=== PATIENT | female | born 1950 | race Hispanic/Latino ===

== ENCOUNTER → 2019-09-25 | Day surgery (SDC) | payer MEDICARE, OTHER ==
[2019-09-22 09:15] LABS: BASOPHILS % 0.3 % (0.0-1.0); EOSINOPHILS # (AUTO) 0.2 (0.0-0.4); EOSINOPHILS % 2.3 % (0.0-6.0); HEMATOCRIT 29.8 % (34.2-44.1); HEMOGLOBIN 9.3 g/dL (12.0-16.0); LYMPHOCYTES # (AUTO) 1.2 (1.0-3.2); MEAN CORPUSCULAR HGB CONC 31.2 g/dL (31-35); MEAN CORPUSCULAR VOLUME 80.1 fL (81-99); MONOCYTES # (AUTO) 0.5 (0.2-0.8); MONOCYTES % 7.6 % (4.4-11.3); NEUTROPHILS % 72.2 % (38.7-80.0); PLATELET COUNT 258 x10e3/uL (140-360); RED BLOOD COUNT 3.72 x10e6/uL (3.6-5.1); RED CELL DISTRIBUTION WIDTH 16.3 % (11.7-14.4)
[~2019-09-25] MED LIST: AMOXICILLIN250 MG PO; FENTANYL CITRATE/PF 100MCG/2 ML INJ ONE; FISH OIL 1,2001 EACH PO; GLIPIZIDE-METF1 EAC2 PO; HYDROCHLOROTHIA25 MG PO; IBUPROFEN200 MG PO; IRON PO; JANUVIA100 MG PO; LANTUS 3ML100 UNITS/ SQ; LIDOCAINE HCL 2% LOCAL INJ 5 ML SDV VIAL INJ ONE; LOSARTAN POTAS100 MG PO; PHENYLEPHRINE HCL 1% 10 MG/ML VIAL ONE; PROPOFOL IV EMULSION 10 MG/ML 20 ML VIAL ONE; SIMVASTATIN40 MG PO
--- OUTSIDE RECORDS SUMMARY | 2019-09-25 10:16 | XMS REPORT | Clinical Summary ---
Author Author [facility][1] Distr ict Organization [facility][1] Distr ict Address Unknown Phone Unavailable Care Team Providers [facility] [place] Recorder Name Role Phone PCP Unavailable Allergies Comments Active Allergy Reactions Severity Noted Date Linden Inhibitors Cough Medium 01/16/2014 Medications End Date Status Medication Sig Dispensed Refills Start Date Active gabapentin (NEURONTIN) Take 1 270 capsule 3 300 mg capsule by 4 capsuleIndications: mouth 3 times Neuropathy, Neck pain on daily. right side Active traMADol (ULTRAM) 50 mg Take 1 tablet 90 tablet 1 tabletIndications: Hip by mouth 4 pain every 8 hours as needed for Pain. Active naproxen (NAPROSYN) 500 Take 1 tablet 180 tablet 2 mg tabletIndications: by mouth 2 4 Back pain times daily as needed for Pain Take with food. Active cetirizine (ZYRTEC) 10 mg Take 1 tablet 90 tablet 2 tabletIndications: by mouth 4 Allergic rhinitis, cause daily. unspecified Active omeprazole (PRILOSEC) 20 Take 1 90 capsule 3 0 201 mg delayed release capsule by 5 capsuleIndications: mouth daily. Unspecified gastritis and gastroduodenitis without mention of hemorrhage Active naproxen (NAPROSYN) 500 Take 1 tablet 60 tablet 1 mg tabletIndications: by mouth 2 5 Tibialis posterior times daily tendinitis (with meals). Active hydrochlorothiazide Take 1/2 45 tablet 3 (HYDRODIURIL) 25 mg tablet by 5 tabletIndications: mouth daily Essential hypertension for blood pressure Active acarbose (PRECOSE) 100 mg Take 1 tablet 360 tablet 3 tabletIndications: by mouth 3 5 Diabetes mellitus with times daily HbA1C goal between 7 and with meals. 8 Active famotidine (PEPCID) 40 mg Take 1 tablet 90 tablet 3 tabletIndications: by mouth 2 5 Gastritis, bile acid times daily reflux as needed for Heartburn. Active cyclobenzaprine Take 1 tablet 30 tablet 3 04/27/20 1 (FLEXERIL) 10 mg by mouth 3 5 tabletIndications: times daily Rotator cuff sprain as needed for Muscle Spasms. Active amitriptyline (ELAVIL) 10 Take 1 tablet 90 tablet 3 mg tabletIndications: by mouth at 6 Chronic intractable bedtime headache, unspecified nightly. headache type Active losartan (COZAAR) 100 mg Take 1 tablet 90 tablet 3 tabletIndications: by mouth 6 Essential hypertension daily. Active glyBURIDE-metFORMIN Take 2 360 tablet 3 (GLUCOVANCE) 5-500 mg per tablets by 6 tabletIndications: Type 2 mouth 2 times diabetes mellitus with daily (with hemoglobin A1c goal of meals). 7.0%-8.0% Active Problems Problem Noted Date Diabetes mellitus with HbA1C goal between 7 and 8 Tibialis posterior tendonitis 06/10/2014 Type 2 diabetes mellitus with target hemoglobin A1c o f less than 8.0 05/26/2014 percent Rotator cuff sprain 05/26/2014 Hyperopia with presbyopia 11/24/2013 Cortical cataract of both eyes 11/24/2013 Low back pain 09/09/2013 Vitamin D deficiency 06/05/2013 Poor posture 01/15/2009 Pain in thoracic spine 01/15/2009 Overview: And chronic neck pain PT sessions not helpful Obesity 09/06/2007 GERD (gastroesophageal reflux disease) 11/01/2006 Overview: UGI 07/18 Hypertension 01/24/2006 Immunizations Name Administration Dates Next Due Herpes Zoster Vaccine In 02/18/2015 Clinic Influenza A (H1N1) Vac 04/07/2009 Injection Influenza Vaccine 02/18/2015, 03/11/2014, 06/2012, 03/15/2012, 02/28/2011, 03/03/2010, 03/10/2009, , 02/22/2007, 05/04/2006, 05/02/2002, , 03/02/2000, 02/26/1997, 02/20/1995, 08/1993, 03/03/1992 PPV 23 Pneumococcal 02/14/2013, 02/21/2005 Polysaccaride Pneumococcal 13-valent 07/13/2015 (Deferred: Vacci ne Unavailable) conj 0.5 mL injection Td Tetanus, diphtheria 05/20/2007 Toxoids Vaccine Family History Medical History Relation Name Comments Hypertension Brother Diabetes Father and brother Cancer Mother uterine Relation Name Status Comments Brother Alive three Brother Daughter Alive four Father dm (Age 66) Maternal Grandfather old age (Age 88) Maternal Grandmother old age (Age 89) Mother uterus cancer (Age 55) Paternal Grandfather unknown (Age unknown) Son Alive wo Social History Date Tobacco Use Types Packs/Day Years Used Never Smoker Smokeless Tobacco: Never Used Tobacco Cessation: Counseling Given: No Comments: none Drinks/Week oz/Week Comments Alcohol Use No Sex Assigned at Date Recorded Not on file Industry Job Start Date Occupation Not on file Not on file Not on file Travel End Travel History Travel Start No recent travel history available. Last Filed Vital Signs Not on file Plan of Treatment Health Maintenance Due Date Last Done Comments Colorectal Cancer Scrn 05/31/2011 05/31/2010, , 11/27/2007, Annual (FIT/FOBT) Age 51 Additional history exists to 76 DM Retinal Exam (Yearly) 04/29/2016 04/29/2015, 1 06/15/2013, 12/05/2012, Additional history exists Breast Cancer Scrn 05/12/2016 05/12/2015, 014, 11/01/2012, (Yearly) Additional history exists DM HGBA1C (Yearly) 06/29/2016 06/29/2015, 015, 10/16/2014, Additional history exists DM Foot Exam (Yearly) 07/12/2016 07/13/2015, 11/0 06/2011, 03/15/2011 IMM Pneumococcal Age 66 09/16/2016 and Up Results Not on fileafter 09/24/2018
[2019-09-25 15:32] VITALS: BP 127/78
[2019-09-25 15:45] LABS: % IRON SATURATION 11 % (15-50); IRON 44 ug/dL (50-170); TOTAL IRON BINDING CAPACITY 410 ug/dL (261-478); TRANSFERRIN 293 mg/dL (180-382)
--- NOTE | 2019-09-25 16:01 | Operative Report ---
DATE OF PROCEDURE: 09/25/2019 SURGEON: Rafael Cunningham MD PROCEDURES: EGD with biopsies and colonoscopy with polypectomy. INDICATION FOR EGD: Dyspepsia. INDICATIONS FOR COLONOSCOPY: Surveillance colonoscopy, personal history of colon polyps. MEDICATIONS: The patient was done under MAC, please see anesthesiologist's note. PROCEDURE IN DETAIL: With the patient in the left lateral decubitus position a flexible fiberoptic Olympus gastroscope was introduced into the esophagus under direct visualization without any difficulty. There was some patchy erythema noted in distal esophagus. A minute tongue of velvety red mucosa was noted to extend proximally from the GE junction that was biopsied to rule out Wagoner. The scope was then advanced with ease into the stomach traversing a small hiatal hernia. Mucosa overlying the antrum and the body revealed some patchy erythema and low-grade to moderate edema, and biopsies were obtained and sent to stain for H. pylori. The pylorus was of normal contour and shape, was intubated with ease and the scope was advanced all the way to the second portion of the duodenum. Biopsies were obtained from the proximal second portion and the duodenal bulb to rule out sprue. The scope was then withdrawn back into the stomach and retroflexed, and mucosa overlying the fundus and the cardia appeared to be within normal limits. The scope was then straightened out, it was subsequently withdrawn, and the patient tolerated the procedure well. IMPRESSION: 1. Distal esophagitis, mild. 2. Rule out Wagoner esophagus. 3. Small sliding hiatal hernia. 4. Gastritis, biopsied, biopsies sent to stain for Helicobacter pylori. 5. Rule out sprue. PLAN: Follow up histology. Initiate Protonix 40 mg one p.o. q.a.m. before meals. The patient was then turned around and after adequate lubrication of the anal canal, a flexible fiberoptic Olympus colonoscope was inserted into the rectum with ease and advanced all the way to the cecum. It was then withdrawn slowly, mucosa overlying the cecum and ascending colon appeared to be within normal limits. One polyp was removed per the cold biopsy forceps from the transverse colon. One polyp was removed per hot biopsy forceps from the descending colon and one polyp was removed also per the hot biopsy forceps from the sigmoid colon. The rectum appeared to be within normal limits. The scope was then retroflexed into the distal rectum and small internal hemorrhoids were noted, none of which was actively bleeding. The scope was then straightened out, it was subsequently withdrawn, and the patient tolerated the procedure well. IMPRESSION: 1. Transverse colon polyp, removed per cold biopsy forceps. 2. Descending colon polyp, hot biopsied. 3. Sigmoid colon polyp, hot biopsied. 4. Internal hemorrhoids, none actively bleeding. PLAN: Follow up histology. Initiate high-fiber, low-fat diet. Initiate high-fiber supplement. The patient might benefit from a followup colonoscopy in 3 years. Rafael Cunningham MD [facility] [place][id number] cc: Celestina Douglas MD
== END | disposition home or self-care (01) ==
LOC: OR 10:09
PROVIDERS: ATTEND Internal Medicine Gastroenterology
DX: K29.50 Unspecified chronic gastritis without bleeding (principal); D12.3 Benign neoplasm of transverse colon; K20.9 Esophagitis, unspecified; K44.9 Diaphragmatic hernia without obstruction or gangrene; K21.9 Gastro-esophageal reflux disease without esophagitis; K59.09 Other constipation; K22.8 Other specified diseases of esophagus; K64.8 Other hemorrhoids; E11.9 Type 2 diabetes mellitus without complications; I10 Essential (primary) hypertension; E78.5 Hyperlipidemia, unspecified; M19.90 Unspecified osteoarthritis, unspecified site; Z01.810 Encounter for preprocedural cardiovascular examination; Z01.812 Encounter for preprocedural laboratory examination; Z11.59 Encounter for screening for other viral diseases; Z79.84 Long term (current) use of oral hypoglycemic drugs; Z79.4 Long term (current) use of insulin
CPT/HCPCS: 36415 ×2; 43239; 45380; 45384; 82607; 82746; 82948; 83540; 84466; 85025; 85045; 87635; 93005; J2001; J2370; J2704; J3010; 45378